=== PATIENT | male | born 1960 | race Caucasian/White ===

== ENCOUNTER → 2017-04-26 | Outpatient (CLI) | payer OTHER ==
--- NOTE | 2017-04-26 10:44 | Diagnostic Imaging Report ---
PROCEDURE:C-SPINE COMPLETE COMPARISON:None. INDICATIONS:NECK PAIN FINDINGS: Cervical spine is visualized from the skull base to the bottom of C7 on the lateral radiograph. No acute displaced fracture or subluxation. Soft tissue, ligamentous, and spinal cord abnormalities cannot be excluded on the basis of plain radiography. There is moderate disc space narrowing and marginal disc osteophyte complex at C5-6 and C6-7. Neural foramina appear patent on the oblique radiographs. Atlantoaxial interval is within normal limits. Prevertebral soft tissues are of normal thickness. CONCLUSION: Moderate degenerative disc disease of the lower cervical spine. Dictated by: Anatoliy Shelton M.D. on 04/26/2017 at 10:52 Electronically approved by: Anatoliy Shelton M.D. on 04/26/2017 at 10:52
== END ==
LOC: RAD 09:50
PROVIDERS: ATTEND Internal Medicine
DX: M54.2 Cervicalgia (principal)
CPT/HCPCS: 72050

== ENCOUNTER → 2017-05-17 | Outpatient (CLI) | payer OTHER ==
--- NOTE | 2017-05-17 17:41 | Diagnostic Imaging Report ---
History: Neck pain Comparison studies: None Technique: Sagittal T1, T2 and IR, axial T2 and axial gradient echo Intravenous contrast: None Findings: Alignment: Focal reversal of the usual lordosis centered at C5-C6.No scoliosis. Cervicomedullary junction: No abnormalities. Patent foramen magnum. . Soft tissues: No T2 hyperintense inflammatory changes. Spinal cord: Normal in size and signal from the foramen magnum through T1. Vertebrae: Normal in height and signal intensity. No fractures, infection or neoplasm. Degenerative changes: C2-C3: No abnormalities. C3-C4: Mild bilateral foraminal stenosis is due to uncoarthrosis. Patent spinal canal and foramina. No disc herniation. C4-C5: Mild spinal canal stenosis is due to a disc osteophyte complex. Foraminal stenosis, moderate right, mild left due to uncoarthrosis. No disc herniations. C5-C6: Moderately degenerated disc. Moderate spinal canal stenosis is due to a disc osteophyte complex. Superimposed moderate foraminal stenosis is due to uncoarthrosis. No disc herniation. C6-C7: Moderately degenerated disc. Moderate spinal canal stenosis is due to a disc osteophyte complex. Moderate bilateral foraminal stenosis is due to uncoarthrosis. No disc herniation. C7-T1: No abnormalities. IMPRESSION: 1. Mild degenerative spinal canal stenosis and foraminal stenosis and moderate right, mild left at C4-5. 2. Focal reversal of the usual lordosis is centered at C5-6 is associated with moderate degenerative changes of the C5-6 and C6-7 disc spaces. Superimposed moderate spinal canal stenosis and moderate bilateral foraminal stenosis is present at both levels. 3. No additional significant abnormalities. 4. No disc herniations. Signed by: Dr. Gume Reyes M.D. on 05/17/2017 5:37 PM
== END ==
LOC: MRI 13:32
PROVIDERS: ATTEND Internal Medicine
DX: M54.12 Radiculopathy, cervical region (principal)
CPT/HCPCS: 72141